=== PATIENT | male | born 1970 | race Caucasian/White ===

== ENCOUNTER 2024-03-09 14:52 | Outpatient (CLI) | payer OTHER, MEDICAID, SELFPAY ==
--- NOTE | 2024-03-09 15:15 | USCV_ITS ---
Gunner Salas Age: 53 Gender: M : 1970 Exam Date: 03/09/2024 14:58 Ordering Phys: Clayton Humphrey MD Technologist: R Exam Location: [facility] – [place] Indication: Risk Factors: Previous Vascular Surgery: Right Brachial BP: / Left Brachial BP: / Right Left Velocity (cm/s) Spectral Plaque Velocity (cm/s) Spectral Plaque Syst/Diast Broadening Syst/Diast Broadening 65.50/ 13.00 Prox CCA 79.90 / 16.30 64.40/ 16.30 Mid CCA 70.80 / 17.00 61.00/ 15.90 Distal CCA 50.50 / 11.20 38.00/ 9.20 Prox ICA 27.60 / 13.20 37.90/ 13.80 Mid ICA / 37.90/ 13.00 Distal ICA 23.00 / 9.70 72.50 ECA 69.50 0.60 ICA/CCA 0.50 Antegrade Vertebral Antegrade 29.30/ 0.00 cm/s 21.20/ 6.10 cm/s Bi Subclavian Bi 51.90 46.00 FINDINGS Comparison: none available. No significant elevation of systolic or diastolic velocities. Mild intimal thickening throughout the common carotid arteries and extending through the bifurcation. Waveforms are normal. Antegrade vertebral arteries. CONCLUSIONS Bilateral ICA stenosis less than 50%. Mild carotid atherosclerosis. Dr. Monica Saldana DO (Electronically Signed) Final Date: 10 March 2024 08:08 S
== END 2024-03-09 14:53 | disposition home or self-care (01) ==
LOC: RAD 14:52
PROVIDERS: PCP Pediatrics; Visit Provider Psychiatry & Neurology Neurology
DX: R55 Syncope and collapse (principal); R25.1 Tremor, unspecified; I27.20 Pulmonary hypertension, unspecified
CPT/HCPCS: 93880